=== PATIENT | female | born 1935 | race Caucasian/White ===

== ENCOUNTER 2016-10-11 11:46 | Inpatient (IN) | payer MEDICARE, BC ==
[~2016-10-11] VITALS: Ht 160 cm; Wt 65.9 kg
[2016-10-11 12:21] LABS: Basophils # (auto) 0 uL; Basophils % (auto) 0.4 % (0.0-2.0); Eosinophils # (auto) 0.1 uL; Eosinophils % (auto) 1.2 % (0.0-7.0); Hemoglobin 14.2 g/dL (12.2-16.2); Lymphocytes # (auto) 1.5 uL; Lymphocytes % (auto) 19.2 % (10.0-50.0); Mean Corpuscular Hemoglobin 30.4 pg (28.0-32.0); Mean Corpuscular Hgb Conc. 33.8 g/dL (32.0-36.0); Mean Platelet Volume 8.3 fL (7.4-10.4); Monocytes # (auto) 0.4 uL; Monocytes % (auto) 5.6 % (0.0-12.0); Neutrophils # (auto) 5.7 uL; Neutrophils % (auto) 73.6 % (37.0-80.0); Platelet Count (auto) 256 10^3/uL (140-450); Red Cell Distribution Width 13.5 % (11.6-16.0); White Blood Cell 7.8 10^3/uL (4.4-10.8)
[2016-10-11 12:50] LABS: INR 0.98 (0.9-1.15); Prothrombin Time 10.6 sec (9.37-12.3)
[2016-10-11 12:57] LABS: Albumin 3.2 g/dL (3.4-5.0); Alkaline Phosphatase 88 U/L (45-117); Anion Gap 10 (5-15); Aspartate Aminotransferase 12 U/L (15-37); BUN/Creatinine Ratio 16.2; Bilirubin, Total 2.2 mg/dL (0.2-1.0); Blood Urea Nitrogen 12 mg/dL (7-18); Carbon Dioxide 20 mmol/L (21-32); Chloride 109 mmol/L (98-107); GFR African American 97 mL/min; GFR Non-African American 80 mL/min; Glucose 96 mg/dL (74-106); Magnesium 2.3 mg/dL (1.6-2.6); Potassium 3.9 mmol/L (3.5-5.1); Sodium 139 mmol/L (136-145); Total Protein 6.8 g/dL (6.4-8.2)
[2016-10-11 13:00] LABS: B-Type Natriuretic Peptide 31.85 pg/mL (0-100)
[2016-10-11 14:55] LABS: Amylase 54 U/L (25-115)
[2016-10-11] MEDS ORDERED: LACTULOSE 20Gm/30ML SOLN PO PRN (15:00)
[2016-10-11] MEDS ORDERED: LORazepam 0.5 MG TAB PO PRN (15:00)
[2016-10-11] MEDS ORDERED: NITROGLYCERIN 0.4 MG SL TAB SL PRN (15:00)
[2016-10-11] MEDS ORDERED: HYDROcodone-ACET 5/325MG TAB PO PRN (15:00)
[2016-10-11] MEDS ORDERED: PROCHLORPERAZINE EDISYLATE 5 MG/ML 2ML VIAL IV PRN (15:00)
[2016-10-11] MEDS ORDERED: ACETAMINOPHEN 500 MG TAB PO PRN (15:00)
[2016-10-11] MEDS ORDERED: TEMAZEPAM 15 MG CAP PO PRN (15:00)
[2016-10-11] MEDS ORDERED: MORPHINE SULF INJ 2 MG/ML SYRINGE 1ML IV PRN (15:00)
[2016-10-11] MEDS ORDERED: NITROGLYCERIN 0.2MG/HR TOPICAL PATCH TD ONE (16:00)
[2016-10-11] MEDS ORDERED: MORPHINE SULF INJ 2 MG/ML SYRINGE 1ML IV ONE (16:00)
[2016-10-11] MEDS ORDERED: ONDANSETRON HCL 4 MG/2 ML VIAL IM ONE (16:00)
[2016-10-11] MEDS ORDERED: ASPirin 81 mg TAB PO ONE (16:00)
[2016-10-11] MEDS: SODIUM CHLORIDE 0.9% 1,000 ML IV SCH (16:14)
[2016-10-11] MEDS: ENOXAPARIN SOD 40 MG/0.4 ML SYRINGE SC SCH (16:14)
[2016-10-11 17:13] LABS: Urine Bilirubin Negative (Negative); Urine Blood Negative /uL (Negative); Urine Color Yellow (Yellow); Urine Glucose Normal (Normal); Urine Ketone TRACE (Negative); Urine Nitrite Negative (Negative); Urine RBC 1 /hpf (0 - 4); Urine Squamous Epithelial Cell FEW /hpf (<5); Urine Urobilinogen Normal (Negative)
[2016-10-11 18:20] VITALS: BP 120/66
[2016-10-11 20:00] VITALS: BP 118/50
[2016-10-11 21:48] VITALS: BP 118/50
[2016-10-11] MEDS ORDERED: FAMOTIDINE 20 MG TAB PO SCH (22:00)
[2016-10-11] MEDS: METOPROLOL TARTRATE 25 MG TAB PO SCH (22:00)
[2016-10-11] MEDS: MORPHINE SULF INJ 2 MG/ML SYRINGE 1ML IV PRN (22:13)
[2016-10-11] MEDS: ATORVASTATIN 20 MG TAB PO SCH (22:13)
[2016-10-12] VITALS (7 sets, daily range): BP systolic 92–124; BP diastolic 54–65
[2016-10-12] MEDS: MORPHINE SULF INJ 2 MG/ML SYRINGE 1ML IV PRN ×2 (03:32→07:28)
[2016-10-12] MEDS: SODIUM CHLORIDE 0.9% 1,000 ML IV SCH ×2 (04:46→19:22)
[2016-10-12 08:09] LABS: Cholesterol 139 mg/dL (< 200); HDL Cholesterol 57 mg/dL (40-59); LDL Cholesterol 75 mg/dL (< 100); Triglycerides 87 mg/dL (< 150)
[2016-10-12] MEDS ORDERED: ADENOSINE 53 MG in GIVE UN-DILUTED 0 ML IV ONE (08:30)
[2016-10-12] MEDS ORDERED: ASPirin 81 mg TAB PO SCH (10:00)
[2016-10-12] MEDS ORDERED: FAMOTIDINE 20 MG TAB PO SCH (10:00)
[2016-10-12] MEDS: NITROGLYCERIN 0.2MG/HR TOPICAL PATCH TD SCH (10:00)
[2016-10-12] MEDS: METOPROLOL TARTRATE 25 MG TAB PO SCH ×2 (10:00→22:00)
[2016-10-12] MEDS: ENOXAPARIN SOD 40 MG/0.4 ML SYRINGE SC SCH (10:32)
[2016-10-12 19:48] LABS: BUN/Creatinine Ratio 11.7; Calcium 8.5 mg/dL (8.5-10.1); Potassium 4.4 mmol/L (3.5-5.1)
[2016-10-12] MEDS: PANTOPRAZOLE SODIUM 40 MG/10 ML VIAL IV SCH (22:09)
[2016-10-12] MEDS: ATORVASTATIN 20 MG TAB PO SCH (22:10)
[2016-10-13 05:00] VITALS: BP 104/47
[2016-10-13] MEDS: SODIUM CHLORIDE 0.9% 1,000 ML IV SCH ×2 (05:34→20:06)
[2016-10-13 08:00] VITALS: BP 105/55
[2016-10-13 09:08] VITALS: BP 105/55
[2016-10-13] MEDS: ENOXAPARIN SOD 40 MG/0.4 ML SYRINGE SC SCH (09:42)
[2016-10-13] MEDS: PANTOPRAZOLE SODIUM 40 MG/10 ML VIAL IV SCH ×2 (09:42→22:40)
[2016-10-13] MEDS: METOPROLOL TARTRATE 25 MG TAB PO SCH ×2 (09:44→22:41)
[2016-10-13] MEDS: NITROGLYCERIN 0.2MG/HR TOPICAL PATCH TD SCH (09:45)
[2016-10-13 12:04] VITALS: BP 118/76
[2016-10-13 16:53] VITALS: BP 127/67
[2016-10-13 22:00] VITALS: BP 117/63
[2016-10-13] MEDS: ATORVASTATIN 20 MG TAB PO SCH (22:40)
[2016-10-14 05:00] VITALS: BP 113/61
[2016-10-14 08:00] VITALS: BP 117/75
[2016-10-14 09:00] VITALS: BP 117/75
[2016-10-14] MEDS: NITROGLYCERIN 0.2MG/HR TOPICAL PATCH TD SCH (10:00)
[2016-10-14] MEDS: PANTOPRAZOLE SODIUM 40 MG/10 ML VIAL IV SCH ×2 (10:35→22:21)
[2016-10-14] MEDS: ENOXAPARIN SOD 40 MG/0.4 ML SYRINGE SC SCH (10:35)
[2016-10-14] MEDS: METOPROLOL TARTRATE 25 MG TAB PO SCH ×2 (10:35→22:22)
[2016-10-14] MEDS: SODIUM CHLORIDE 0.9% 1,000 ML IV SCH ×2 (10:35→23:04)
[2016-10-14 13:00] VITALS: BP 125/63
[2016-10-14 17:06] VITALS: BP 151/74
[2016-10-14 21:36] VITALS: BP 119/60
[2016-10-14] MEDS: ATORVASTATIN 20 MG TAB PO SCH (22:21)
[2016-10-15] VITALS (7 sets, daily range): BP systolic 106–120; BP diastolic 51–67
[2016-10-15 08:17] LABS: Basophils # (auto) 0 uL; Basophils % (auto) 0.5 % (0.0-2.0); Eosinophils # (auto) 0.4 uL; Hematocrit 38.4 % (36.0-46.0); Hemoglobin 12.9 g/dL (12.2-16.2); Lymphocytes # (auto) 1.7 uL; Lymphocytes % (auto) 30.4 % (10.0-50.0); Mean Corpuscular Hemoglobin 30.6 pg (28.0-32.0); Mean Corpuscular Hgb Conc. 33.5 g/dL (32.0-36.0); Mean Corpuscular Volume 91.5 fL (80.0-100.0); Mean Platelet Volume 8.3 fL (7.4-10.4); Monocytes # (auto) 0.4 uL; Neutrophils # (auto) 3.1 uL; Neutrophils % (auto) 55.1 % (37.0-80.0); Platelet Count (auto) 269 10^3/uL (140-450); Red Cell Distribution Width 13.4 % (11.6-16.0); White Blood Cell 5.6 10^3/uL (4.4-10.8)
[2016-10-15 08:35] LABS: BUN/Creatinine Ratio 10.9; Calcium 8.3 mg/dL (8.5-10.1); Potassium 3.7 mmol/L (3.5-5.1)
[2016-10-15] MEDS: METOPROLOL TARTRATE 25 MG TAB PO SCH ×3 (10:00→22:31)
[2016-10-15] MEDS: ENOXAPARIN SOD 40 MG/0.4 ML SYRINGE SC SCH (10:09)
[2016-10-15] MEDS: PANTOPRAZOLE SODIUM 40 MG/10 ML VIAL IV SCH ×2 (10:10→22:30)
[2016-10-15] MEDS: SUCRALFATE 1 GM TAB PO SCH ×3 (12:21→22:30)
[2016-10-15] MEDS: SODIUM CHLORIDE 0.9% 1,000 ML IV SCH (12:23)
[2016-10-15] MEDS: ATORVASTATIN 20 MG TAB PO SCH (22:30)
[2016-10-16] MEDS: SODIUM CHLORIDE 0.9% 1,000 ML IV SCH (04:02)
[2016-10-16] MEDS: SUCRALFATE 1 GM TAB PO SCH ×2 (07:00→13:09)
[2016-10-16] MEDS ORDERED: SODIUM CHLORIDE LOCK 10 ML ONE (08:28)
[2016-10-16] MEDS ORDERED: LIDOCAINE VISCOUS 2% 15ML UD ONE (08:28)
[2016-10-16] MEDS ORDERED: fentaNYL CITRATE 100 MCG/2 ML VL ONE (08:29)
[2016-10-16] MEDS ORDERED: diphenhdrAMINE HCL 50 MG/1 ML VL ONE (08:29)
[2016-10-16 09:00] VITALS: BP 117/74
[2016-10-16] MEDS: PANTOPRAZOLE SODIUM 40 MG/10 ML VIAL IV SCH (10:00)
[2016-10-16] MEDS: METOPROLOL TARTRATE 25 MG TAB PO SCH (10:00)
[2016-10-16] MEDS: ENOXAPARIN SOD 40 MG/0.4 ML SYRINGE SC SCH (10:00)
[2016-10-16] MEDS: MIDAZOLAM HCL 5 MG/ML-1ML VIAL ONE ×2 (11:18→11:21)
[2016-10-16 13:00] VITALS: BP 125/66
[2016-10-16 13:37] VITALS: BP 125/66
[2016-10-16] MEDS ORDERED: PANTOPRAZOLE 40 MG TAB PO SCH (22:00)
== END 2016-10-16 18:13 | disposition home or self-care (01) | DRG 392 ==
LOC: ER 11:46 → TELE 11:47 → TELE-E-ADS 16:44 → TELE-EAST 18:20 → EAST 10-15 17:34
PROVIDERS: ADMIT Internal Medicine; ATTEND Internal Medicine Pulmonary Disease
PROC: 0DB68ZX Excision of Stomach, Via Natural or Artificial Opening Endoscopic, Diagnostic (ICD-10-PCS; principal; 2016-10-16 11:15)
DX: K20.9 Esophagitis, unspecified (principal); J98.11 Atelectasis; E44.1 Mild protein-calorie malnutrition; K29.60 Other gastritis without bleeding; K57.30 Diverticulosis of large intestine without perforation or abscess without bleeding; C50.919 Malignant neoplasm of unspecified site of unspecified female breast; K75.3 Granulomatous hepatitis, not elsewhere classified; K44.9 Diaphragmatic hernia without obstruction or gangrene; I51.7 Cardiomegaly; R68.84 Jaw pain; Z91.041 Radiographic dye allergy status; Z90.10 Acquired absence of unspecified breast and nipple; Z90.49 Acquired absence of other specified parts of digestive tract; Z88.0 Allergy status to penicillin; Z88.8 Allergy status to other drugs, medicaments and biological substances; Z90.710 Acquired absence of both cervix and uterus; Z68.25 Body mass index [BMI] 25.0-25.9, adult; Z71.3 Dietary counseling and surveillance
CPT/HCPCS: 36415; 71010; 74176; 78452; 80048; 80053; 80061; 81001; 82150; 82550; 83690; 83735; 83880; 84443; 84484; 85025; 85379; 85610; 85652; 85730; 86141; 93005; 93017; 94761; 96372; 96374; C9113; J0153; J2250; J2405